=== PATIENT | female | born 1965 | race Caucasian/White ===

== ENCOUNTER 2017-03-01 16:45 | Inpatient (IN) | payer OTHER ==
[~2017-03-01] VITALS: Ht 165.1 cm; Wt 105.1 kg
[~2017-03-01 16:45] MED LIST: CALC600C PO; LORT5TAB PO; PHEN35TA PO
[2017-03-01 17:00] VITALS: BP 136/79; PULSE 91; RESP 17; TEMP 98.1; O2SAT 94
[2017-03-01] MEDS ORDERED: METOCLOPRAMIDE HCL 10 MG/2 ML VIAL IV PRN (17:45)
[2017-03-01 20:00] VITALS: BP 126/58; PULSE 60; RESP 17; TEMP 99.2; O2SAT 92
[2017-03-01] MEDS: D5-1/2 NS + KCL 20 MEQ INJ 1,000 ML IV SCH (20:05)
[2017-03-01 21:32] LABS: AUTOMATED NEUTROPHIL # 9.6 TH/MM3 (1.8-7.7); BASOPHIL % 0.2 % (0.0-2.0); EOSINOPHIL % 0.2 % (0.0-4.0); HEMATOCRIT 35.2 % (35.0-46.0); HEMOGLOBIN 11.9 GM/DL (11.6-15.3); LYMPH % 9.9 % (9.0-44.0); LYMPHOCYTE # 1.1 TH/MM3 (1.0-4.8); MEAN CELL VOLUME 90.4 FL (80.0-100.0); MEAN CORPUSCULAR HEMOGLOBIN 30.5 PG (27.0-34.0); MEAN CORPUSCULAR HGB CONC 33.7 % (32.0-36.0); MONO % 4.7 % (0.0-8.0); MONOCYTE # 0.5 TH/MM3 (0-0.9); PLATELET COUNT 273 TH/MM3 (150-450); RED CELL DISTRIBUTION WIDTH 13.4 % (11.6-17.2); WHITE BLOOD COUNT 11.3 TH/MM3 (4.0-11.0)
[2017-03-01 21:57] LABS: ALBUMIN 3.4 GM/DL (3.4-5.0); ALT (GPT) 30 U/L (10-53); AST (GOT) 19 U/L (15-37); BICARBONATE 26.9 MEQ/L (21.0-32.0); BLOOD UREA NITROGEN 9 MG/DL (7-18); CALCIUM 8.5 MG/DL (8.5-10.1); CHLORIDE 106 MEQ/L (98-107); CREATININE 0.59 MG/DL (0.50-1.00); GLOMERULAR FILTRATION RATE 107 ML/MIN (>89); GLUCOSE,RANDOM 102 MG/DL (74-106); SODIUM (NA) 139 MEQ/L (136-145)
[2017-03-01 22:00] LABS: ALKALINE PHOSPHATASE 75 U/L (45-117); TOTAL BILIRUBIN ADULT 0.4 MG/DL (0.2-1.0); TOTAL PROTEIN 6.6 GM/DL (6.4-8.2)
[2017-03-02 00:41] VITALS: BP 110/53; PULSE 69; RESP 18; TEMP 99; O2SAT 93
[2017-03-02] MEDS: D5-1/2 NS + KCL 20 MEQ INJ 1,000 ML IV SCH ×3 (02:32→18:47)
[2017-03-02] MEDS: HYDROmorphone HCL PF 2 MG/ML VIAL IV PRN ×5 (03:03→23:43)
[2017-03-02] MEDS: ONDANSETRON HCL 4 MG/2 ML VIAL IV PUSH PRN ×5 (03:04→23:43)
[2017-03-02 05:38] VITALS: BP 99/52; PULSE 62; RESP 20; TEMP 98.7; O2SAT 93
[2017-03-02 06:22] LABS: BICARBONATE 25.6 MEQ/L (21.0-32.0); CALCIUM 8.3 MG/DL (8.5-10.1); CREATININE 0.56 MG/DL (0.50-1.00)
[2017-03-02 08:00] VITALS: BP 101/51; PULSE 73; RESP 17; TEMP 98.5; O2SAT 93
[2017-03-02 12:00] VITALS: BP 122/59; PULSE 60; RESP 18; TEMP 98.1; O2SAT 92
[2017-03-02 16:00] VITALS: BP 101/53; PULSE 64; RESP 17; TEMP 96.3; O2SAT 93
[2017-03-02 20:00] VITALS: BP 107/65; PULSE 60; RESP 18; TEMP 98.2; O2SAT 93
[2017-03-03 00:54] VITALS: BP 114/65; PULSE 82; RESP 18; TEMP 98.9; O2SAT 95
[2017-03-03] MEDS: D5-1/2 NS + KCL 20 MEQ INJ 1,000 ML IV SCH ×3 (04:30→17:45)
[2017-03-03] MEDS: HYDROmorphone HCL PF 2 MG/ML VIAL IV PRN ×2 (05:56→10:36)
[2017-03-03] MEDS: ONDANSETRON HCL 4 MG/2 ML VIAL IV PUSH PRN ×4 (05:56→22:24)
[2017-03-03 08:00] VITALS: BP 105/59; PULSE 76; RESP 17; TEMP 98.1; O2SAT 93
[2017-03-03 12:00] VITALS: BP 121/64; PULSE 69; RESP 17; TEMP 97.8; O2SAT 92
[2017-03-03 16:00] VITALS: BP 106/57; PULSE 70; RESP 17; TEMP 97.7; O2SAT 94
[2017-03-03 20:00] VITALS: BP 118/69; PULSE 68; RESP 17; TEMP 98.7; O2SAT 93
[2017-03-04] VITALS: BP 116/65; PULSE 75; RESP 17; TEMP 98.6; O2SAT 93
[2017-03-04] MEDS: D5-1/2 NS + KCL 20 MEQ INJ 1,000 ML IV SCH ×2 (04:00→09:45)
[2017-03-04 08:00] VITALS: BP 122/64; PULSE 73; RESP 18; TEMP 98.5; O2SAT 96
[2017-03-04] MEDS: ONDANSETRON HCL 4 MG/2 ML VIAL IV PUSH PRN (09:54)
--- NOTE | 2017-03-04 11:38 | HHI.PR ---
Subjective Subjective Notes pt states drinking better nausea better Objective Vitals/I&O Vital Signs Date Time Temp Pulse Resp B/P (MAP) Pulse Ox O2 Delivery O2 Flow Rate FiO2 03/04/17 08:00 98.5 73 18 122/64 (83) 96 Cardiovascular: Regular Abdomen: Post-op tenderness Extremities: Perfused Wound Wound : Wound Location: Abdomen Appearance: Clean & Dry A/P Assessment and Plan pt s/p lap sleeve doing well d/c home today Ba Christopher MD Mar 04, 2017 11:38
[2017-03-04 12:00] VITALS: BP 115/62; PULSE 74; RESP 16; TEMP 98.5; O2SAT 93
== END 2017-03-04 15:11 | disposition home or self-care (01) | DRG 392 ==
LOC: N07A 16:45
PROVIDERS: ADMIT Surgery; ATTEND Surgery
DX: R11.2 Nausea with vomiting, unspecified (principal); E66.01 Morbid (severe) obesity due to excess calories; K21.9 Gastro-esophageal reflux disease without esophagitis; Z68.38 Body mass index [BMI] 38.0-38.9, adult; Z98.84 Bariatric surgery status
CPT/HCPCS: 80048; 80053; 84425; 85025; J1170; J2405; J3480